=== PATIENT | male | born 1965 | race Caucasian/White ===

== ENCOUNTER 2017-06-27 15:48 | Emergency (ER) | payer OTHER ==
[2017-06-27] MEDS ORDERED: BENADRYL 50 MG/ML IV ONE (17:29)
[2017-06-27] MEDS ORDERED: MORPHINE SULFATE 10 MG/ML IV ONE (17:29)
[2017-06-27] MEDS ORDERED: Sodium Chloride 0.9% 1000 ML 1,000 ML IV SCH (17:30)
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
[2017-06-27] MEDS ORDERED: Sodium Chloride 0.9% 1000 ML 1,000 ML ONE (17:43)
[2017-06-27] MEDS ORDERED: MORPHINE SULFATE 10 MG/ML ONE (17:43)
[2017-06-27] MEDS ORDERED: BENADRYL 50 MG/ML ONE (17:43)
[2017-06-27 18:41] VITALS: BP 131/67; PULSE 86; O2SAT 97
--- NOTE | 2017-06-28 08:35 | XRAY ---
Indication: Right neck pain following fall. Multiple contiguous axial images obtained through the cervical spine. Sagittal and coronal reformatted images obtained. Comparison: April 17, 2016. Axial images again negative for acute fracture, suspicious bony lesions, or spinal canal stenosis. Stable minimal C5-C7 broad-based disc bulge and right C7-T1 degenerative facet hypertrophy. Sagittal and coronal reformatted images demonstrates cervical lordotic straightening, positional versus paraspinal spasm. Disc spaces preserved. No acute compression fracture, subluxation or jumped facet. Normal-appearing craniocervical junction. Visualized noncontrasted soft tissues including base of the brain and lung apices unremarkable. Impression: 1. Cervical lordotic straightening, positional versus paraspinal spasm. Again negative for acute fracture/subluxation. 2. Stable C5-C7 broad-based disc bulge and right C7-T1 degenerative facet hypertrophy. Outpatient MRI may yield further information. CT DI 120.21
--- NOTE | 2017-06-28 08:45 | XRAY ---
Indication: Pain following fall. Comparison: None 3 views of the left ankle demonstrates lateral soft tissue swelling. No other bony, articular, or soft tissue abnormalities.
--- NOTE | 2017-06-28 08:45 | XRAY ---
Indication: Pain following fall. Comparison: None 3 views of the right shoulder obtained with patient on cart. Scapular Y view limited due to suboptimal positioning. There is Hill-Sachs deformity and a few tiny subcortical greater tuberosity cysts. No other bony, articular, or soft tissue abnormalities.
== END 2017-06-27 19:10 | disposition home or self-care (01) ==
LOC: ED 15:48
DX: S93.402A Sprain of unspecified ligament of left ankle, initial encounter (principal); S13.4XXA Sprain of ligaments of cervical spine, initial encounter; M25.511 Pain in right shoulder; W01.0XXA Fall on same level from slipping, tripping and stumbling without subsequent striking against object, initial encounter
CPT/HCPCS: 36000; 72125; 73030; 73610; 96360; 96374; 96375; 99285; J1200; J2270; L4386

== ENCOUNTER 2021-12-02 20:35 | Observation (INO) | payer MEDICAID, OTHER ==
[2021-12-02] MEDS ORDERED: Sodium Chloride 0.9% 1000 ML 1,000 ML IV SCH (21:15)
[2021-12-02 21:16] LABS: Absolute Neutrophil Ct (ANC) 4.62 x10^3/uL (1.4-6.9); Basophil (Absolute #) 0.09 x10^3/uL (0-0.4); Eosinophil % 5.3 % (0.00-5.0); Eosinophil (Absolute #) 0.47 x10^3/uL (0-0.5); Hematocrit 45.7 % (42-50); Hemoglobin 14.9 g/dL (12.5-18.0); Lymphocyte (Absolute #) 2.79 x10^3/uL (1.0-4.6); Lymphocytes % 31.5 % (24.0-44.0); Mean Cell Volume 88.9 fL (78-100); Mean Corpuscular Hgb Concent. 32.6 g/dL (32-36); Mean Platelet Volume 8.5 fL (7.5-11.0); Monocyte (Absolute #) 0.85 x10^3/uL (0.0-1.3); Monocytes % 9.6 % (0.0-12.0); Neutrophil % 52.3 % (36.0-66.0); Platelet Count 364 x10^3/uL (150-450); Red Blood Count 5.14 x10^6/uL (4.1-5.6); Red Cell Distribution Width 12.8 % (11.5-14.0); White Blood Count 8.9 x10^3/uL (4.0-10.5)
[2021-12-02 21:41] LABS: ALBUMIN 4.1 g/dL (3.5-5.0); ALKALINE PHOSPHATASE 108 U/L (38-126); ANION GAP 12.3 MEQ/L (5-15); BLOOD UREA NITROGEN 18 mg/dL (9-20); CHLORIDE 105 mmol/L (98-107); Calcium 8.9 mg/dL (8.4-10.2); Carbon Dioxide 26 mmol/L (22-30); Creatinine 1 1.27 mg/dL (0.66-1.25); EST GLOMERULAR FILTRATION RATE > 60.0 ML/MIN; Glucose 86 mg/dL (74-106); MAGNESIUM 2.5 mg/dL (1.6-2.3); NT PRO BNP 24.1 pg/mL (0-900); Potassium 3.9 mmol/L (3.5-5.1); SGOT/AST 28 U/L (17-59); SGPT/ALT 25 U/L (0-50); SODIUM 140 mmol/L (137-145); Total Protein 7.4 g/dL (6.3-8.2)
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
[2021-12-02] MEDS ORDERED: solu-MEDROL 125 MG, Sterile H2O 10 ml 2 ML IV ONE ×2 (23:08)
[2021-12-02] MEDS ORDERED: DUONEB 0.5-3 MG/3 ml Neb IH ONE ×2 (23:08→23:17)
[2021-12-02 23:32] LABS: ARTERIAL BLD GAS O2 SATURATION 99 % (95-100); ARTERIAL BLOOD GAS BASE EXCESS 1.7 (-2.0-2.0); ARTERIAL BLOOD GAS PCO2 42 mmHg (35-45); ARTERIAL BLOOD GAS PO2 97 mmHg (75-100); ARTERIAL BLOOD GAS pH 7.41 (7.35-7.45); HCO3- 26.6 (22-28)
[2021-12-02 23:33] LABS: A-aADO2 0; ABG HEMOGLOBIN 14.5; ABG POTASSIUM 3.5 (3.5-5.1); ARTERIAL BLOOD GAS FIO2 21 %; CARBON DIOXIDE 30 mEq/L (23-27); Methhemoglobin 1.2 % (1.4-1.5)
[2021-12-02 23:34] LABS: CARBOXYHEMOGLOBIN 2.1 % THgb (0.0-6.9)
[2021-12-02 23:35] LABS: ABG SITE LEFT RADIAL; ALLEN TEST OK? YES; HGB O2 SAT 95.6 g/dF (94-100)
[2021-12-02] MEDS ORDERED: solu-MEDROL ONE (23:47)
[2021-12-02] MEDS ORDERED: BABY ASPIRIN 81 MG CHEW PO ONE (23:49)
[2021-12-03 00:42] LABS: INFLUENZA A NEGATIVE (NEGATIVE); INFLUENZA B NEGATIVE (NEGATIVE); RESPIRATORY SYNCTIAL VIRUS NEGATIVE (Negative); SARS-CoV-2 Xpert Express NEGATIVE (NEGATIVE)
[2021-12-03] MEDS ORDERED: Senokot-S Tablet PO PRN (01:08)
[2021-12-03] MEDS ORDERED: MILK OF MAGNESIA 30 ML PO PRN (01:08)
[2021-12-03] MEDS ORDERED: Zofran 4 MG/2 ML VIAL IV PRN (01:08)
[2021-12-03] MEDS ORDERED: MAALOX ES 30 ML UNIT DOSE PO PRN (01:08)
[2021-12-03] MEDS ORDERED: TYLENOL 325 MG PO PRN (01:08)
[2021-12-03 04:03] LABS: Risk Ratio 4.7
[2021-12-03 04:33] LABS: Appearance CLEAR (CLEAR); Bilirubin NEGATIVE (NEGATIVE); Glucose NEGATIVE (NEGATIVE); Ketones NEGATIVE (NEGATIVE); Mucus SLIGHT /HPF (NEGATIVE); Ph 5.5 (5-6); Protein,Urine Dip NEGATIVE (Negative); RBC NEGATIVE Ery/ul (0-5); Specific Gravity >=1.030 (1.005-1.025); Sperm PRESENT /HPF (NEGATIVE)
[2021-12-03 04:34] LABS: Bacteria NONE SEEN /HPF (NEGATIVE); Dipstick done @ ? MAIN LAB; Nitrite NEGATIVE (NEGATIVE); Urine Cultured Indicated? NO; Urobilinogen 1 mg/dL (0-1)
[2021-12-03 04:37] LABS: Barbiturate,Urine NEGATIVE (NEGATIVE); Benzodiazepine,Urine NEGATIVE (NEGATIVE); Cocaine,Urine NEGATIVE (NEGATIVE); Methadone,Urine NEGATIVE (NEGATIVE); Opiate,Urine NEGATIVE (NEGATIVE); PCP,Urine NEGATIVE (NEGATIVE); THC,Urine NEGATIVE (NEGATIVE)
[2021-12-03 04:53] LABS: Amphetamine,Urine POSITIVE (NEGATIVE)
--- NOTE | 2021-12-03 08:34 | PCM.SSS ---
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 (Auto) (0-0.5) x10^3/uL Immature Gran # (Auto) (0.00-0.03) x10^3u/L Absolute Lymphs (auto) (1.0-4.6) x10^3/uL Absolute Monos (auto) (0.0-1.3) x10^3/uL Absolute Nucleated RBC (0.00-0.01) x10^3u/L Lymphocytes % (24.0-44.0) % Monocytes % (0.0-12.0) % Eosinophils % (0.00-5.0) % Basophils % (0.0-0.4) % Absolute Granulocytes (1.4-6.9) x10^3/uL Basophils # (0-0.4) x10^3/uL Puncture Site pCO2 (35-45) mmHg pO2 (75-100) mmHg Base Excess (-2.0-2.0) O2 Saturation (94-100) g/dF ABG pH (7.35-7.45) ABG HCO3 (22-28) ABG O2 Sat (Measured) (95-100) % Alejandro Test A-a Gradient a/A Ratio Hemoglobin Carboxyhemoglobin (0.0-6.9) % THgb Methemoglobin (1.4-1.5) % POC O2 Flow Rate % Sodium (137-145) mmol/L Potassium (3.5-5.1) mmol/L Chloride (98-107) mmol/L Carbon Dioxide (22-30) mmol/L Anion Gap (5-15) MEQ/L BUN (9-20) mg/dL Creatinine (0.66-1.25) mg/dL Estimated GFR ML/MIN Glucose (74-106) mg/dL Calcium (8.4-10.2) mg/dL Magnesium (1.6-2.3) mg/dL Total Bilirubin (0.2-1.3) mg/dL AST (17-59) U/L ALT (0-50) U/L Alkaline Phosphatase (38-126) U/L Troponin I < 0.012 (0.000-0.034) ng/mL NT-Pro-B Natriuret Pep (0-900) pg/mL Serum Total Protein (6.3-8.2) g/dL Albumin (3.5-5.0) g/dL Triglycerides 214 H (30-150) mg/dL Cholesterol 176 (50-200) mg/dL LDL Cholesterol 120 H (30-100) mg/dL HDL Cholesterol 37 L (40-60) mg/dL Heart Disease Risk Ratio 4.7 Urinalys Dipstick Clnc Urine Color (YELLOW) Urine Appearance (CLEAR) Urine pH (5-6) Ur Specific Cubero (1.005-1.025) POC Urine Protein Conf (Negative) Urine Ketones (NEGATIVE) Urine Nitrite (NEGATIVE) Urine Bilirubin (NEGATIVE) Urine Urobilinogen (0-1) mg/dL Urine Leukocytes (NEGATIVE) Urine WBC (Auto) (0-5) /HPF Urine RBC (Auto) (0-2) /HPF U Epithel Cells (Auto) (FEW) /HPF Urine Bacteria (Auto) (NEGATIVE) /HPF Urine RBC (0-5) Antonio/ul Urine Mucus (Auto) (NEGATIVE) /HPF Urine Sperm (Auto) (NEGATIVE) /HPF Ur Culture Indicated? Urine Glucose (NEGATIVE) mg/dL Urine Opiates Level (NEGATIVE) Ur Methadone (NEGATIVE) Urine Barbiturates (NEGATIVE) Ur Phencyclidine (PCP) (NEGATIVE) Urine Amphetamine (NEGATIVE) U Benzodiazepine Level (NEGATIVE) Urine Cocaine (NEGATIVE) Urine Marijuana (THC) (NEGATIVE) Influenza Type A Ag (NEGATIVE) Influenza Type B Ag (NEGATIVE) RSV (PCR) (Negative) SARS-CoV-2 (PCR) (NEGATIVE) - Radiology Exams Ordered Rad Exams-Entire Visit: Radiology Procedures Category Date Time Status CAROTID BILATERAL [US] Routine Exams 12/03/21 Ordered CHEST 1 VIEW (PORTABLE) Stat Exams 12/02/21 21:09 Taken HEAD WITHOUT CONTRAST [CT] Stat Exams 12/02/21 21:10 Taken MRA BRAIN WITHOUT CONTRAST [MRI] Routine Exams 12/03/21 08:25 Ordered MRI BRAIN W/O CONTRAST [MRI] Routine Exams 12/03/21 08:24 Ordered - Procedures and Test Procedures and Tests throughout Hospitalization: Therapy Orders & Screens 12/02/21 23:46 Respiratory Therapy Assessment DAILY Comment: 12/03/21 01:08 EKG [id number],QAMX3,PRN Comment: 12/03/21 05:00 EKG ROUTINE Comment: Diagnosis: Acute stroke, confusion, amnesia 12/04/21 05:00 EKG ROUTINE Comment: Diagnosis: Acute stroke, confusion, amnesia 12/05/21 05:00 EKG ROUTINE Comment: Diagnosis: Acute stroke, confusion, amnesia - Discharge Disposition: Home, Self-Care Condition: Stable Prescriptions: New Atorvastatin Calcium 20 mg PO DAILY #30 tablet Aspirin EC 81 mg [Ecotrin 81 mg] 81 mg PO DAILY #30 tab Follow up with: LAKHWINDER CHASE NP [Primary Care Provider] - 1 Week
--- NOTE | 2021-12-03 08:37 | XRAY ---
Indication: Confusion and memory loss. Stroke. Multiple contiguous axial images obtained through the head without contrast. Comparison: April 17, 2016. Stable small focus old infarct inferior right frontal lobe. No acute intracranial hemorrhage, abnormal extra-axial fluid collection, or mass effect. Fourth ventricle is midline without hydrocephalus. Peoples-white matter differentiation is preserved. Bony calvarium intact with again old bilateral facial bone fractures with metallic fixation hardware and old nasal bone fracture. There is now near-complete opacification of the right maxillary sinus. Mastoid air cells are clear. Impression: 1. Stable small old right frontal lobe infarct. 2. No new/acute intracranial abnormalities. 3. New right maxillary sinus disease.
--- NOTE | 2021-12-03 08:37 | XRAY ---
Indication: Confusion. Pneumonia. Comparison: April 17, 2016. Portable chest remains clear. Heart not enlarged. Bony thorax intact again with mild osteopenia, degenerative changes, and old left 6 rib fracture. No new/acute findings.
--- NOTE | 2021-12-03 09:39 | XRAY ---
Indication: Stroke symptoms one day earlier. Sagittal, coronal, and axial MRI brain performed without contrast using T1, T2, FLAIR, diffusion, and ADC sequences. Comparison: None Inferior right frontal lobe demonstrates small focus of encephalomalacia with surrounding gliosis favoring old infarct. No acute intracranial hemorrhage, hydrocephalus, or mass effect. Diffusion images are negative for restricted signal. Fourth ventricle is midline without hydrocephalus. 7/8 cranial nerve complex bilaterally symmetric. Normal flow void signal within the major intracerebral circulation. Normal appearing craniocervical junction and sella turcica. Near-complete opacification right maxillary sinus with fluid leveling. Remaining paranasal sinuses are clear. Impression: 1. Small old right frontal lobe infarct. 2. No acute intracranial abnormalities or evidence for evolving large vessel territorial stroke. 2. Incidental right maxillary sinus disease.
[2021-12-03] MEDS ORDERED: ECOTRIN 81 MG PO SCH (10:00)
--- NOTE | 2021-12-03 10:09 | XRAY ---
Indication: Stroke like symptoms. Conventional multi-slab 3-D [id number] MRA [place] performed. Comparison: None Distal internal carotid arteries are bilaterally symmetric without critical stenosis or obstruction. Normal carotid terminus with normal branching A1 and M1 segments bilaterally. More distal anterior cerebral and middle cerebral arteries are normal in MRA appearance. Incidental anatomic variant for origin right posterior cerebral artery. Posterior circulation demonstrates dominant distal left vertebral artery. Remaining basilar, left posterior cerebral, left/right superior cerebellar, and left/right anterior inferior cerebellar arteries are normal in MRA appearance. Impression: Anatomic variant origin right posterior cerebral artery. Remaining MRA [place] is negative.
[2021-12-03 11:34] VITALS: BP 160/86; PULSE 110; O2SAT 98
--- NOTE | 2021-12-03 12:07 | XRAY ---
Indication: Acute mental status change. TIA/CVA. Two-dimensional sonogram and color Doppler imaging of the carotid arteries of the neck performed. Comparison: None Elimination of the right carotid circulation demonstrates minimal eccentric soft plaquing in the common carotid, carotid bulb, and proximal external carotid arteries. Internal carotid artery widely patent. Distal internal carotid artery tortuous. PSV of the CCA is 104 cm/s. PSV of the ICA is 190 cm/s. ICA/CCA ratio is 1.8. Normal antegrade vertebral artery flow. Examination of the left carotid circulation demonstrates minimal soft plaquing in the carotid bulb. Remaining common carotid, internal carotid, and external carotid arteries are widely patent. PSV of the CCA is 108 cm/s. PSV of the ICA is 129 cm/s. ICA/CCA ratio is 1.2. Normal antegrade vertebral artery flow. Impression: Minimal scattered arteriosclerotic plaquing bilaterally as detailed. Tortuous right internal carotid artery explains accelerated velocities. Remaining velocity measurements and ratios are negative for hemodynamically significant flow limiting stenosis.
== END 2021-12-03 15:55 | disposition home or self-care (01) ==
LOC: ED 20:35 → MED SURG 12-03 01:02
PROVIDERS: ADMIT Family Medicine; ATTEND Family Medicine
DX: G93.40 Encephalopathy, unspecified (principal); R41.82 Altered mental status, unspecified; T67.5XXA Heat exhaustion, unspecified, initial encounter; R55 Syncope and collapse; Z79.899 Other long term (current) drug therapy; Z20.828 Contact with and (suspected) exposure to other viral communicable diseases
CPT/HCPCS: 0241U; 36000; 36415; 36600; 70450; 70544; 70551; 71045; 80053; 80061; 80307; 81015; 82375; 82803; 83721; 83735; 83880; 84484; 85025; 87040; 93005; 93041; 93880; 94640; 94760; 96360; 96375; 93268; 99285; J2930; Q3014; A9270-GY; G0378

== ENCOUNTER 2024-08-19 16:29 | Emergency (ER) | payer MEDICAID ==
[2024-08-19 17:08] VITALS: PULSE 106; TEMP 99.1; O2SAT 96
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
[2024-08-19] MEDS ORDERED: KEFLEX 500 MG ONE (17:58)
[2024-08-19] MEDS: KEFLEX 500 MG PO ONE (17:58)
[2024-08-19 18:00] VITALS: BP 141/78
== END 2024-08-19 18:04 | disposition home or self-care (01) ==
LOC: ED 16:29
DX: S61.441A Puncture wound with foreign body of right hand, initial encounter (principal); W26.8XXA Contact with other sharp object(s), not elsewhere classified, initial encounter; W45.8XXA Other foreign body or object entering through skin, initial encounter; Z72.0 Tobacco use; Z79.899 Other long term (current) drug therapy
CPT/HCPCS: 10120; 99282; 99283; A9270-GY